=== PATIENT | female | born 1965 | race Two or more races ===

== ENCOUNTER 2023-11-13 02:00 | Emergency (ER) | payer OTHER ==
[~2023-11-13] VITALS: Ht 170.2 cm; Wt 90.7 kg
[2023-11-13] MEDS ORDERED: SYNTHROID75 MCG PO (02:13)
[2023-11-13] MEDS ORDERED: CRESTOR10 MG PO (02:14)
[2023-11-13] MEDS ORDERED: CHLORTHALIDONE25 MG PO (02:14)
[2023-11-13] MEDS ORDERED: NORVASC5 MG PO (02:14)
[2023-11-13] MEDS ORDERED: TOPROL XL50 M1 PO (02:14)
== END 2023-11-13 04:24 ==
LOC: ER 02:00
DX: R00.2 Palpitations (principal); I10 Essential (primary) hypertension; E03.9 Hypothyroidism, unspecified

== ENCOUNTER 2024-09-17 21:05 | Emergency (ER) | payer OTHER ==
[~2024-09-17] VITALS: Ht 170.2 cm; Wt 86.2 kg
[~2024-09-17 21:05] MED LIST: CHLORTHALIDONE25 MG PO; CRESTOR10 MG PO; NORVASC5 MG PO; SYNTHROID75 MCG PO; TOPROL XL50 M1 PO
== END 2024-09-17 23:28 | disposition home or self-care (01) ==
LOC: ER 21:08
DX: I10 Essential (primary) hypertension (principal); E03.8 Other specified hypothyroidism; E78.00 Pure hypercholesterolemia, unspecified